=== PATIENT | male | born 1955 | race Caucasian/White ===

== ENCOUNTER 2024-12-18 09:57 | Outpatient (AMB) | payer MEDICARE, SELFPAY ==
--- NOTE | 2024-12-18 10:24 | MHC.PC.OV ---
Vital Signs 12/18/24 10:28 12/18/24 11:03 Height 5 ft 4.76 in Weight 131 lb 4 oz BMI 22.0 BP 210/126 H 200/100 H Blood Pressure Location Lt brachial Position Sitting Pulse 74 Pulse Source Pulse Oximeter Temp 97.1 F Temp Source Temporal Artery Scan Pulse Oximetry (%) 98 Oxygen Delivery Method Room Air Comment pt drink 4-6 cups/medium McCafe coffee per day Intake Visit Reasons: will need PE soon, establish Care Supervisor Adult Education Required: No Accompanied by: Self / Same As Patient Allergies No Known Allergies Allergy (Verified 12/18/24 10:44) Medication List - Last Reconciled 12/18/24 by Jamel Jovel PA-C No Known Home Meds Tobacco use date assessed: 12/18/24 Fall risk assessment: No Falls in past year Last assessed Fall Risk: 12/18/24 Dental Screening Dental Screen Date: 12/18/24 Did you have a dental visit in the last 12 months?: No Did you have a dental problem in the last 6 months where you did not have access to dental care?: Yes Was dental information given to patient?: Patient has dentist HPI will need PE soon, establish Care HPI Details Patient is a 69 year male here today for a new patient visit. Has not seen a PCP in over 15 years Patient's blood pressure very elevated today in office. He admits to drinking several (6-8) cups coffee per day. He otherwise denies any dizziness, headaches, vision issues. He does report chest discomfort from time to time that is short-lived. He reports he continues to work part-time. 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 Vaccines: Declines all vaccines Colorectal cancer screening: We did discuss possibly doing a Cologuard though would like to hold off on this for now. He will consider colonoscopy as well. [facility] Family History (Updated 12/18/24 @ 10:52 by Jamel Jovel PA-C) Mother HTN (hypertension) Social History Housing: Apartment Patient Tobacco Use Status: Never used Tobacco e-Cigarette/Vaping Use: Never Used service: No Current occupational status: employed Cognitive needs: No Hearing needs: No Vision needs: No Questionnaire PHQ-9 Over the last 2 weeks, how often have you been bothered by any of the following problems? 1. Little interest or pleasure in doing things: not at all 2. Feeling down, depressed, or hopeless: not at all 3. Trouble falling or staying asleep, or sleeping too much: not at all 4. Feeling tired or having little energy: not at all 5. Poor appetite or overeating: not at all 6. Feeling bad about yourself - or that you are a failure or have let yourself or your family down: not at all 7. Trouble concentrating on things, such as reading the newspaper or watching television: not at all 8. Moving or speaking so slowly that other people could have noticed. Or the opposite - being so fidgety or restless that you have been moving around a lot more than usual: not at all 9. Thoughts that you would be better off or of hurting yourself in some way: not at all Total score: 0 Depression Screening Interpretation: Negative Depression Screening Done: Yes 33316 - PHQ-9 Billing: Yes Source: Developed by Drs. Martín Molina, Destiny Flores, Gavin Lawrence and colleagues, with an educational tasneem from [employer]. Thrive Questionnaire Date Thrive assessed: 12/18/24 I am a: Patient What is your living situation today?: I have a steady place to live Within the past 12 months, did the food you bought not last and you didn't have the money to get more?: Never true Within the past 12 months, did you worry whether your food would run out before you got money to buy more?: Never true Do you have trouble paying for medicines?: No Do you have trouble getting transportation to medical appointments?: No Do you have trouble paying your heating and electricity bill?: No Do you have trouble taking care of your child, family member or friend?: No Do you have trouble with day-to-day activities such as bathing, preparing meals, shopping, managing finances, etc.?: No Are you currently unemployed and looking for a job?: No Are you interested in more education?: Yes Please select the resources that you would like help with: None Currently or been in a relationship where the following occur: I choose not to answer THRIVE Score: 0 AUDIT C Alcohol Use Questionnaire (AUDIT-C) 1. How often do you have a drink containing alcohol?: Never 3. How often do you have six or more drinks on one occasion?: Never Total Score: 0 RENITA-7 AMB Questionnaire RENITA-7 Date RENITA - 7 assessed: 12/18/24 Feeling nervous, anxious, or on edge: 0 = Not at all Not being able to stop or control worryin = Not at all Worrying too much about different things: 0 = Not at all Trouble relaxin = Not at all Being so restless that it is hard to sit still: 0 = Not at all Becoming easily annoyed or irritable: 0 = Not at all Feeling afraid as if something awful might happen: 0 = Not at all Total RENITA-7 score (0-4 normal; 5-9 mild; 10-14 moderate; 15-21 severe): 0 Source: Developed by Drs. Martín Molina, Destiny Flores, Gavin Lawrence and colleagues, with an educational tasneem from [employer]. RENITA-7 Assessment Billing RENITA-7 Assessment Tool: RENITA-7 Assessment 68753 Review of Systems Const Denies headache(s) Eyes Denies loss of vision ENT Denies vertigo, Denies dizziness, Denies headache(s) and Denies sore throat Card Reports chest pain, Denies leg edema and Denies lightheadedness Resp Denies cough, Denies hemoptysis and Denies wheezing GI Denies abdominal pain, Denies melena, Denies constipation, Denies diarrhea and Denies vomiting Denies dysuria, Denies urinary frequency and Denies urinary urgency Musc Denies arthralgias, Denies joint swelling, Denies numbness and Denies tingling Neuro Denies Abnormal speech present, Denies behavioral changes, Denies vertigo, Denies dizziness, Denies headache(s), Denies loss of vision, Denies memory loss, Denies numbness and Denies tingling Psych Denies anxiety, Denies behavioral changes, Denies depression, Denies memory loss and Denies panic attacks Silviano/Lymph Denies easy bleeding and Denies easy bruising Aller/Immun Denies wheezing Physical exam (Primary Care) Vital Signs: Last Vital Signs Temp 97.1 F 12/18/24 10:28 Pulse 74 12/18/24 10:28 BP 200/100 H 12/18/24 11:03 Pulse Ox 98 12/18/24 10:28 Oxygen Delivery Method Room Air 12/18/24 10:28 BMI result Body Mass Index 22.0 Tobacco/Smoking Status: Tobacco use Status Tobacco use date assessed 12/18/24 12/18/24 10:37 Patient Tobacco Use Status Never used Tobacco 12/18/24 10:37 e-Cigarette/Vaping Use Never Used 12/18/24 10:37 PHQ-9: PHQ-9 Score PHQ-9: Total score 0 12/18/24 10:48 Depression Screening Interpretation: Negative Thrive Assessment: Date of Thrive Assessment Date Thrive assessed 12/18/24 12/18/24 10:37 Currently or been in a relationship where the following occur: I choose not to answer Const General: healthy appearing, no acute distress, alert and awake Nutritional Appearance: well nourished Orientation/consciousness: oriented to person, oriented to place and oriented to time HENMT Ears: TM's normal bilaterally General nose exam: Normal nasal mucous membranes and turbinates present Eyes Conjunctivae: conjunctivae normal Sclerae: sclerae normal Pupils: Equal, round and reactive pupils present Neck Neck: Yes no lymphadenopathy and Yes no JVD Thyroid: Thyroid normal Carotids: no bruits Resp Effort & Inspection: normal respiratory effort and not tachypneic Auscultation: no crackles, no rales, no rhonchi and no wheezes Cardio Rate: regular rate Rhythm: regular rhythm Heart sounds: no murmurs and normal S1 and S2 GI Palpation (GI): Soft to palpation, nontender, no hepatomegaly and no splenomegaly Auscultation: normal bowel sounds Skin General skin exam: no rashes or lesions noted and dry skin Neuro General: oriented to person, oriented to place and oriented to time Cranial nerves: Yes Equal, round and reactive pupils present Speech: No Abnormal speech present Gait exam (Neuro): Normal gait present Motor exam (neuro): no tremor noted Extrem Right upper extremity: full ROM Left upper extremity: full ROM Right lower extremity: full ROM; no edema Left lower extremity: full ROM; no edema Psych Mental Status: mental status grossly normal Speech and movement: Normal speech and movement present Affect: normal affect Attitude: cooperative Thought process: Normal thought process present Office Procedures Flu Questionnaire Does the patient have a severe egg allergy?: No Immunizations Fluarix Triv [id number] (PF) 45 mcg (15 mcg x 3)/0.5 mL IM syringe Performing Provider: Jamel Jovel PA-C [facility] Documented (not given) by: HELIO Guevara on 12/18/24 10:37 Reason Not Given: Patient Refused Coding Level of Care Code New Pt Level 4 (47964) Diagnoses Primary hypertension I10 Hypertension type: primary hypertension Screening for diabetes mellitus (DM) Z13.1 Colon cancer screening Z12.11 Intermittent chest pain R07.9 Additional Codes RENITA-7 Assessment Billing - RENITA-7 Assessment Tool: RENITA-7 Assessment 87963 ([id number]) PHQ-9 - 29453 - PHQ-9 Billing: Yes ([id number]) Assessment & Plan Assessment & Plan (1) HTN (hypertension): Code(s): I10 - Essential (primary) hypertension Category: Medical Qualifiers: Hypertension type: primary hypertension Qualified Code(s): I10 - Essential (primary) hypertension Plan: Patient's blood pressure very elevated today in office. He is asymptomatic. We did discuss the need to start blood pressure medication though he declines. He would like to work dietary modifications and will follow up in 3 weeks to evaluate blood pressure. Explained that his blood pressure should preferably be below 140/90. He will decrease his coffee intake and sodium intake. Gave him reading material on low-sodium/ DASH diet We did discuss starting a blood pressure medication at time if blood pressure high. (2) Screening for diabetes mellitus (DM): Code(s): Z13.1 - Encounter for screening for diabetes mellitus Category: Medical Plan: As per HPI (3) Colon cancer screening: Code(s): Z12.11 - Encounter for screening for malignant neoplasm of colon Category: Medical Plan: Patient holding off on colorectal cancer screening at this point. (4) Intermittent chest pain: Code(s): R07.9 - Chest pain, unspecified Category: Medical Plan: We did discuss patient's intermittent chest pain today and had advised him on a cardiac stress test and an EKG though he declines at this time. We did discuss the possibility of his high blood pressure causing his chest discomfort and he is somewhat agrees. I INFORMED HIM WE SHOULD BE STRONGLY CONSIDERING STARTING A BLOOD PRESSURE MEDICATION THOUGH HE DECLINES AT THIS TIME.. Again He will work o dietary and lifestyle modifications and will see him back in a few weeks to evaluate blood pressure Orders: Orders Microalbumin, Random (w Creat) 12/18/24 I10 - Essential (primary) hypertension Comprehensive [place]. Panel Fast 12/18/24 I10 - Essential (primary) hypertension Prostate Specific Antigen Scr 12/18/24 I10 - Essential (primary) hypertension, Z12.5 - Encounter for screening for malignant neoplasm of prostate Influenza [id number] Immunization 12/18/24 Z23 - Encounter for immunization Complete Blood Count no Diff 12/18/24 I10 - Essential (primary) hypertension
[2024-12-18 10:28] VITALS: BP 210/126; PULSE 74; TEMP 36.2; O2SAT 98; BMI 22.0
--- OUTSIDE RECORDS SUMMARY | 2024-12-18 10:38 | XMS_ITS | Clinical Summary ---
Author Organization [employer] Address [address] [facility] [address] [place] [address] Care Team Providers Care Investment Banking Associate Name Role Phone Unavailable Primary Care Provider Unavailabl e Social History Tobacco Use Types Packs/Day Years Used Date Smoking Tobacco: Never Assessed Sex and Gender Information Value Date Recorded Sex Assigned at Male 07/23/2024 9:16 AM EDT Legal Sex Male 9:13 AM EDT Gender Identity Male 07/23/2024 9:16 AM EDT Sexual Orientation Choose not to disclose 2023 9:16 AM EDT Plan of Treatment Health Maintenance Due Date Last Done Comments CT Colonography 1956 Colonoscopy 1956 Colorectal Cancer Screening 1956 Dental Oral Exam 1956 Dental Prophylaxis 1956 Dental X-Ray: Bitewings 1956 Dental X-Ray: Full Mouth 1956 Depression Screening 1956 FIT DNA/Cologuard 1956 FIT 1956 FOBT 1956 Lipid Panel 1956 SDOH Screening 1956 Sigmoidoscopy 1956 Alcohol/Substance Use Screening 1968 Tobacco Screening 1968 Hepatitis C Screening 1974 DTaP/Tdap/Td Vaccines (1 - Tdap) 1975 Pneumococcal Vaccine: 50+ Ye ars (1 of 1 - PCV) 2006 Zoster Vaccines (1 of 2) 2006 COVID-19 Vaccine ( - 2023-2 5 season) 2024 Influenza Vaccine (#1) 2024 RSV Patients and Pa tients Aged 60 years or older (1 - 1-dose 75+ series) 2031 HIB Vaccines Aged Out No longer eligi ble based on patient's age to complete this topic HPV Vaccines Aged Out No longer eligi ble based on patient's age to complete this topic Hepatitis A Vaccines Aged Out No long er eligible based on patient's age to complete this topic Hepatitis B Vaccines Aged Out No long er eligible based on patient's age to complete this topic IPV Vaccines Aged Out No longer eligi ble based on patient's age to complete this topic Meningococcal Vaccine Aged Out No brianna stephanie eligible based on patient's age to complete this topic RSV under 20 months Aged Out No longe r eligible based on patient's age to complete this topic Rotavirus Vaccines Aged Out No longer eligible based on patient's age to complete this topic
--- OUTSIDE RECORDS SUMMARY | 2024-12-18 10:38 | XMS_ITS | Encounter Summary ---
Author Organization [employer] Address [address] [facility] [address] [place] [address] Care Team Providers Care Navigation Officer Name Role Phone Unavailable Primary Care Provider Unavailabl e Reason for Visit * Reason Onset Date Comments comp no insurance 07/23/2024 Encounter Details Date Type Department Care Team (Late st Contact Info) Description 07/23/2024 Telephone [facility] [address], [place] [phone] Jarvis Hart BDS [address] [place], [place] [phone] comp no insurance Social History Tobacco Use Types Packs/Day Years Used Date Smoking Tobacco: Never Assessed Sex and Gender Information Value Date Recorded Sex Assigned at Male 07/23/2024 9:16 AM EDT Legal Sex Male 9:13 AM EDT Gender Identity Male 07/23/2024 9:16 AM EDT Sexual Orientation Choose not to disclose 2023 9:16 AM EDT documented as of this encounter Miscellaneous Notes * Telephone Encounter - Viky Peña - 07/23/2024 9:20 AM EDT Patient is self pay. He is contacting his insurance to verify if he has dental coverage with his employer. Has been infomred that if he does not have coverage, he will be paying full fee of visit. Informed patient that he may go in to [facility] location at least 1 month prior to appt to apply for SFS andsee if he qualifies for reduced rate documented in this encounter Plan of Treatment Not on file documented as of this encounter Visit Diagnoses Not on filedocumented in this encounter
[2024-12-18 11:03] VITALS: BP 200/100
== END 2024-12-18 11:18 | disposition home or self-care (01) ==
PROVIDERS: Visit Provider Physician Assistant
DX: Z23 Encounter for immunization (principal)

== ENCOUNTER → 2024-12-18 09:57 | Outpatient (BNVA) | payer MEDICARE, SELFPAY | PROVIDERS: Visit Provider Physician Assistant | DX: I10 Essential (primary) hypertension (principal); R07.9 Chest pain, unspecified | CPT/HCPCS: 90471; 96127; 99202 ==

== ENCOUNTER 2024-12-26 08:44 | Outpatient (REF) | payer MEDICARE, SELFPAY ==
[2024-12-26 10:55] LABS: Hematocrit 44.1 % (42.0-52.0); Hemoglobin 14.6 g/dl (14.0-18.0); Mean Corpuscular HGB Conc 33.1 g/dl (31.0-36.0); Mean Corpuscular Hemoglobin 30.6 pg (27.0-33.0); Mean Corpuscular Volume 92.5 fL (80.0-98.0); Mean Platelet Volume 11.3 fL (9.4-12.4); Platelet Count 288 X10*3/uL (160-400); Red Blood Count 4.77 X10*6/uL (4.60-5.80); Red Cell Distribution Width 13.1 % (11.0-16.0); White Blood Count 10.2 X10*3/uL (4.8-10.8)
[2024-12-26 11:09] LABS: Alanine Aminotransferase 15 U/L (0-40); Albumin Level 4.6 g/dL (3.5-5.0); Alkaline Phosphatase 54 U/L (39-117); Anion Gap 12 (12-20); Aspartate Amino Transferase 22 U/L (5-37); Bilirubin Total 0.6 mg/dL (0.0-1.0); Blood Urea Nitrogen 15 mg/dL (9-16); Calcium 9.2 mg/dL (8.4-10.2); Carbon Dioxide 26 mmol/L (22-29); Chloride 107 mmol/L (96-108); Estimated Glomerular Filt Rate > 60; Glucose Fasting 90 mg/dL (60-99); Potassium 4.5 mmol/L (3.3-5.1); Sodium 140 mmol/L (135-145); Total Protein 7.6 g/dL (6.5-8.0)
[2024-12-26 11:39] LABS: Prostate Specific Antigen Scr 1.08 ng/mL (<0.05-4.0)
[2024-12-26 11:55] LABS: Creatinine Urine 144.67 mg/dL; Microalbum/Creatinine Ratio Ur 35.9 ug/mg cr (<30)
== END 2024-12-26 08:45 | disposition home or self-care (01) ==
LOC: HO.LAB 08:44
PROVIDERS: PCP Physician Assistant; Visit Provider Physician Assistant
DX: I10 Essential (primary) hypertension (principal); Z12.5 Encounter for screening for malignant neoplasm of prostate
CPT/HCPCS: 36415; 80053; 82043; 82570; 84153; 85027

== ENCOUNTER 2025-01-09 09:39 | Outpatient (AMB) | payer MEDICARE, SELFPAY ==
--- NOTE | 2025-01-09 10:05 | A.OFFPC_ITS ---
Vital Signs 01/09/25 10:06 Height 5 ft 4.67 in Weight 136 lb 2 oz BMI 22.9 BP 152/90 H Blood Pressure Location Lt brachial Position Sitting Pulse 70 Pulse Source Pulse Oximeter Temp 96.3 F L Temp Source Temporal Artery Scan Pulse Oximetry (%) 97 Oxygen Delivery Method Room Air Intake Visit Reasons: f/u blood pressure Intake Note: Patient is here to follow up on HTN. Threat Analyst Required: No Fruit Thinner Machine Operator: Not Required per policy Accompanied by: Self / Same As Patient Allergies No Known Allergies Allergy (Verified 01/09/25 10:15) Medication List - Last Reconciled 01/09/25 by Jamel Jovel PA-C lisinopril 5 mg PO DAILY Tobacco use date assessed: 01/09/25 Fall risk assessment: No Falls in past year Last assessed Fall Risk: 01/09/25 Dental Screening Dental Screen Date: 12/18/24 HPI f/u blood pressure HPI Details Patient is a 69 old male here today for a blood pressure follow-up. 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 He was started on lisinopril 5 mg. Today blood pressure much improved though still remains slightly elevated. Patient currently denies any chest pain, dizziness, vision issues. Seems that blood pressure is a bit better since last office visit on lisinopril 5 mg. Will increase to double the dose 10 mg for better blood pressure control. Will supply patient with a paper Rx for blood pressure cuff to monitor blood pressure at home Concern--> does report having a sensation of a foreign body in his right eye. 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 Will refer to Ophthalmology for the foreign body sensation. Will send for x-ray of his orbits to evaluate for any metal. [facility] Family History Mother HTN (hypertension) Social History Housing: Apartment Patient Tobacco Use Status: Never used Tobacco e-Cigarette/Vaping Use: Never Used Second Hand Smoke Exposure: No service: No Current occupational status: employed Cognitive needs: No Hearing needs: No Vision needs: No Questionnaire Thrive Questionnaire Date Thrive assessed: 12/18/24 I am a: Patient What is your living situation today?: I have a steady place to live Within the past 12 months, did the food you bought not last and you didn't have the money to get more?: Never true Within the past 12 months, did you worry whether your food would run out before you got money to buy more?: Never true Do you have trouble paying for medicines?: No Do you have trouble getting transportation to medical appointments?: No Do you have trouble paying your heating and electricity bill?: No Do you have trouble taking care of your child, family member or friend?: No Do you have trouble with day-to-day activities such as bathing, preparing meals, shopping, managing finances, etc.?: No Are you currently unemployed and looking for a job?: No Are you interested in more education?: Yes Please select the resources that you would like help with: None Currently or been in a relationship where the following occur: I choose not to answer THRIVE Score: 0 RENITA-7 AMB Questionnaire RENITA-7 Date RENITA - 7 assessed: 12/18/24 Source: Developed by Drs. Martín Molina, Destiny Flores, Gavin Lawrence and colleagues, with an educational tasneem from [employer]. Review of Systems Const Denies headache(s) Eyes Denies loss of vision ENT Denies vertigo, Denies dizziness, Denies headache(s) and Denies sore throat Card Denies chest pain, Denies leg edema and Denies lightheadedness Resp Denies cough, Denies hemoptysis and Denies wheezing GI Denies abdominal pain, Denies melena, Denies constipation, Denies diarrhea and Denies vomiting Denies dysuria, Denies urinary frequency and Denies urinary urgency Musc Denies arthralgias, Denies joint swelling, Denies numbness and Denies tingling Neuro Denies Abnormal speech present, Denies behavioral changes, Denies vertigo, Denies dizziness, Denies headache(s), Denies loss of vision, Denies memory loss, Denies numbness and Denies tingling Psych Denies anxiety, Denies behavioral changes, Denies depression, Denies memory loss and Denies panic attacks Silviano/Lymph Denies easy bleeding and Denies easy bruising Aller/Immun Denies wheezing Physical exam (Primary Care) Vital Signs: Last Vital Signs Temp 96.3 F L 01/09/25 10:06 Pulse 70 01/09/25 10:06 BP 152/90 H 01/09/25 10:06 Pulse Ox 97 01/09/25 10:06 Oxygen Delivery Method Room Air 01/09/25 10:06 BMI result Body Mass Index 22.9 Tobacco/Smoking Status: Tobacco use Status Tobacco use date assessed 01/09/25 01/09/25 10:13 Patient Tobacco Use Status Never used Tobacco 01/09/25 10:13 e-Cigarette/Vaping Use Never Used 01/09/25 10:13 Thrive Assessment: Date of Thrive Assessment Date Thrive assessed 12/18/24 01/09/25 10:13 Currently or been in a relationship where the following occur: I choose not to answer Const General: healthy appearing, no acute distress, alert and awake Nutritional Appearance: well nourished Orientation/consciousness: oriented to person, oriented to place and oriented to time HENMT Ears: TM's normal bilaterally General nose exam: Normal nasal mucous membranes and turbinates present Eyes Conjunctivae: conjunctivae normal Sclerae: sclerae normal Pupils: Equal, round and reactive pupils present Neck Neck: Yes no lymphadenopathy and Yes no JVD Thyroid: Thyroid normal Carotids: no bruits Resp Effort & Inspection: normal respiratory effort and not tachypneic Auscultation: no crackles, no rales, no rhonchi and no wheezes Cardio Rate: regular rate Rhythm: regular rhythm Heart sounds: no murmurs and normal S1 and S2 GI Palpation (GI): Soft to palpation, nontender, no hepatomegaly and no splenomegaly Auscultation: normal bowel sounds Skin General skin exam: no rashes or lesions noted and dry skin Neuro General: oriented to person, oriented to place and oriented to time Cranial nerves: Yes Equal, round and reactive pupils present Speech: No Abnormal speech present Gait exam (Neuro): Normal gait present Motor exam (neuro): no tremor noted Extrem Right upper extremity: full ROM Left upper extremity: full ROM Right lower extremity: full ROM; no edema Left lower extremity: full ROM; no edema Psych Mental Status: mental status grossly normal Speech and movement: Normal speech and movement present Affect: normal affect Attitude: cooperative Thought process: Normal thought process present Coding Level of Care Code Est Pt Level 4 (31963) Diagnoses Primary hypertension I10 Hypertension type: primary hypertension Onychomycosis of nail of digit of hand B35.1 Foreign body of right eye, initial encounter T15.91XA Encounter type: initial encounter Laterality: right Assessment & Plan Assessment & Plan (1) HTN (hypertension): Code(s): I10 - Essential (primary) hypertension Category: Medical Qualifiers: Hypertension type: primary hypertension Qualified Code(s): I10 - Essential (primary) hypertension Plan: Patient's blood pressure remains elevated today in office. Has been improved since starting lisinopril 5 mg. Will increase his lisinopril to 10 mg for better blood pressure control. Goal blood pressure to be below 140/90 (2) Onychomycosis of nail of digit of hand: Code(s): B35.1 - Tinea unguium Category: Medical Plan: Has chronic opaque greenish appearing thumbnail. Most recent liver enzymes normal. Will start oral antifungal (3) Eye foreign body: Code(s): T15.90XA - Foreign body on external eye, part unspecified, unspecified eye, initial encounter Category: Medical Qualifiers: Encounter type: initial encounter Laterality: right Qualified Code(s): T15.91XA - Foreign body on external eye, part unspecified, right eye, initial encounter Plan: As per HPI Orders: Orders Lipid Panel 01/09/25 I10 - Essential (primary) hypertension Microalbumin, Random (w Creat) 01/09/25 I10 - Essential (primary) hypertension Comprehensive [place]. Panel Fast 01/09/25 I10 - Essential (primary) hypertension XR orbit min 4V 01/09/25 T15.91XA - Foreign body on external eye, part unspecified, right eye, initial encounter Referrals Ophthalmology Referral T15.91XA - Foreign body on external eye, part unspecified, right eye, initial encounter Cologuard Test Z12.11 - Encounter for screening for malignant neoplasm of colon Medications: New lisinopril 10 mg PO DAILY 30 tabs 2RF 30 days I10 - Essential (primary) hypertension blood pressure monitor test blood pressure one per day 1 ea 0RF I10 - Essential (primary) hypertension terbinafine HCl 250 mg PO DAILY 84 tabs 0RF 12 weeks B35.1 - Tinea unguium
[2025-01-09 10:06] VITALS: BP 152/90; PULSE 70; TEMP 35.7; O2SAT 97; BMI 22.9
--- OUTSIDE RECORDS SUMMARY | 2025-01-09 11:06 | XMS_ITS | Clinical Summary ---
Author Organization [employer] Address [address] [facility] [address] [place] [address] Care Team Providers Care Traffic Manager Name Role Phone Unavailable Primary Care Provider [...]
--- OUTSIDE RECORDS SUMMARY | 2025-01-09 11:06 | XMS_ITS | Encounter Summary ---
Author Organization [employer] Address [address] [facility] 7t [place] [address] Care Team Providers Care Nutrition Internship Name Role Phone Unavailable Primary Care Provider Unavailabl e Reason for Visit * Reason Onset Date Comments comp no insurance 07/23/2024 Encounter Details Date Type Department Care Team (Late st Contact Info) Description 07/23/2024 Telephone [facility] DENTAL [address] [place], [place] [phone] Jarvis Hart BDS [address] [place], [place] [phone] comp no insurance Social History Tobacco Use [...] patient that he may go in to [facility] location at least 1 month prior to appt to apply for SFS andsee if he qualifies for reduced rate documented in this encounter Plan of Treatment Not on file documented as of this encounter Visit Diagnoses Not on filedocumented in this encounter
== END 2025-01-09 10:41 | disposition home or self-care (01) ==
PROVIDERS: Visit Provider Physician Assistant
DX: I10 Essential (primary) hypertension (principal); B35.1 Tinea unguium; T15.91XA Foreign body on external eye, part unspecified, right eye, initial encounter

== ENCOUNTER → 2025-01-09 09:39 | Outpatient (BNVA) | payer MEDICARE, SELFPAY | PROVIDERS: Visit Provider Physician Assistant | DX: I10 Essential (primary) hypertension (principal); B35.1 Tinea unguium; T15.91XD Foreign body on external eye, part unspecified, right eye, subsequent encounter | CPT/HCPCS: 99212 ==

== ENCOUNTER 2025-01-25 07:32 | Outpatient (REF) | payer MEDICARE, SELFPAY ==
--- OUTSIDE RECORDS SUMMARY | 2025-01-25 07:36 | XMS_ITS | Clinical Summary ---
Author Organization [employer] Address [address] [facility] 7[address] [place] [address] Care Team Providers Care Compressor Operator Name Role Phone Unavailable Primary Care Provider [...]
--- OUTSIDE RECORDS SUMMARY | 2025-01-25 07:36 | XMS_ITS | Encounter Summary ---
Author Organization [employer] Address [address] [facility] [address] [place] [address] Care Team Providers Care Ice Bag Assembler Name Role Phone Unavailable Primary Care Provider Unavailabl e Reason for Visit * Reason Onset Date Comments comp no insurance 07/23/2024 Encounter Details Date Type Department Care Team (Late st Contact Info) Description 07/23/2024 Telephone [facility] D[facility]AL [address] [place], [place] [phone] Jarvis Hart BDS [address] [place], [place] [phone] comp no insurance Social History Tobacco Use [...] patient that he may go in to [facility] location at least 1 month prior to appt to apply for SFS andsee if he qualifies for reduced rate documented in this encounter Plan of Treatment Not on file documented as of this encounter Visit Diagnoses Not on filedocumented in this encounter
[2025-01-25 08:55] LABS: Alanine Aminotransferase 18 U/L (0-40); Albumin Level 4.3 g/dL (3.5-5.0); Alkaline Phosphatase 52 U/L (39-117); Anion Gap 11 (12-20); Aspartate Amino Transferase 18 U/L (5-37); Bilirubin Total 0.4 mg/dL (0.0-1.0); Blood Urea Nitrogen 19 mg/dL (9-16); Calcium 9.2 mg/dL (8.4-10.2); Carbon Dioxide 26 mmol/L (22-29); Chloride 109 mmol/L (96-108); Cholesterol 219 mg/dL (<200); Estimated Glomerular Filt Rate > 60; Glucose Fasting 106 mg/dL (60-99); HDL Cholesterol 50 mg/dL (>40); LDL Cholesterol Calculated 145 mg/dL (<100); Potassium 4.5 mmol/L (3.3-5.1); Sodium 141 mmol/L (135-145); Total Protein 7.3 g/dL (6.5-8.0); Triglycerides 123 mg/dL (<150)
[2025-01-25 09:34] LABS: Creatinine Urine 199.31 mg/dL; Microalbum/Creatinine Ratio Ur 21.5 ug/mg cr (<30)
== END 2025-01-25 07:33 | disposition home or self-care (01) ==
LOC: HO.LAB 07:32
PROVIDERS: PCP Physician Assistant; Visit Provider Physician Assistant
DX: I10 Essential (primary) hypertension (principal)
CPT/HCPCS: 36415; 80053; 80061; 82043; 82570

== ENCOUNTER 2025-02-06 09:14 | Outpatient (AMB) | payer MEDICARE, SELFPAY ==
--- NOTE | 2025-02-06 09:16 | MHC.PC.OV ---
Vital Signs 02/06/25 09:23 Height 5 ft 4.67 in Weight 133 lb 8 oz BMI 22.4 BP 160/102 H Blood Pressure Location Lt brachial Position Sitting Pulse 68 Pulse Source Pulse Oximeter Temp 97.1 F Temp Source Temporal Artery Scan Pulse Oximetry (%) 99 Oxygen Delivery Method Room Air Intake Visit Reasons: f/u HTN / Dental clearance Reed Fixer Required: No Accompanied by: Self / Same As Patient Allergies No Known Allergies Allergy (Verified 02/06/25 09:32) Medication List - Last Reconciled 02/06/25 by Jamel Jovel PA-C blood pressure monitor test blood pressure one per day lisinopril 10 mg PO DAILY 30 days terbinafine HCl 250 mg PO DAILY 12 weeks Tobacco use date assessed: 01/09/25 Dental Screening Dental Screen Date: 12/18/24 HPI f/u HTN / Dental clearance HPI Details Patient is a 61-year-old male here today for follow-up visit. .. Hypertension: Patient's blood pressure remains elevated today in office. Will increase his lisinopril to 20 mg for better blood pressure control. Fortunately patient is asymptomatic without any dizziness, headaches, chest discomforts. Poor dentition: reports severe dental caries requiring significant dental work with an associated high financial burden, searching for options to mitigate this through a dental school at [facility]. Current PSAs indicate satisfactory results, while prostate health remains a point of interest for the patient. He is currently on terbinapine for onychomycosis, with emphasis on monitoring liver function due to potential medication-induced hepatotoxicity. PFSH Family History Mother HTN (hypertension) Social History Housing: Apartment Patient Tobacco Use Status: Never used Tobacco e-Cigarette/Vaping Use: Never Used Second Hand Smoke Exposure: No service: No Current occupational status: employed Cognitive needs: No Hearing needs: No Vision needs: No Questionnaire Thrive Questionnaire Date Thrive assessed: 12/18/24 I am a: Patient What is your living situation today?: I have a steady place to live Within the past 12 months, did the food you bought not last and you didn't have the money to get more?: Never true Within the past 12 months, did you worry whether your food would run out before you got money to buy more?: Never true Do you have trouble paying for medicines?: No Do you have trouble getting transportation to medical appointments?: No Do you have trouble paying your heating and electricity bill?: No Do you have trouble taking care of your child, family member or friend?: No Do you have trouble with day-to-day activities such as bathing, preparing meals, shopping, managing finances, etc.?: No Are you currently unemployed and looking for a job?: No Are you interested in more education?: Yes Please select the resources that you would like help with: None Currently or been in a relationship where the following occur: I choose not to answer THRIVE Score: 0 RENITA-7 AMB Questionnaire RENITA-7 Date RENITA - 7 assessed: 12/18/24 Source: Developed by Drs. Martín Molina, Destiny Flores, Gavin Lawrence and colleagues, with an educational tasneem from [employer]. Review of Systems Const Denies headache(s) Eyes Denies loss of vision ENT Denies vertigo, Denies dizziness, Denies headache(s) and Denies sore throat Card Denies chest pain, Denies leg edema and Denies lightheadedness Resp Denies cough, Denies hemoptysis and Denies wheezing GI Denies abdominal pain, Denies melena, Denies constipation, Denies diarrhea and Denies vomiting Denies dysuria, Denies urinary frequency and Denies urinary urgency Musc Denies arthralgias, Denies joint swelling, Denies numbness and Denies tingling Neuro Denies Abnormal speech present, Denies behavioral changes, Denies vertigo, Denies dizziness, Denies headache(s), Denies loss of vision, Denies memory loss, Denies numbness and Denies tingling Psych Denies anxiety, Denies behavioral changes, Denies depression, Denies memory loss and Denies panic attacks Silviano/Lymph Denies easy bleeding and Denies easy bruising Aller/Immun Denies wheezing Physical exam (Primary Care) Vital Signs: Last Vital Signs Temp 97.1 F 02/06/25 09:23 Pulse 68 02/06/25 09:23 BP 160/102 H 02/06/25 09:23 Pulse Ox 99 02/06/25 09:23 Oxygen Delivery Method Room Air 02/06/25 09:23 BMI result Body Mass Index 22.4 Tobacco/Smoking Status: Tobacco use Status Tobacco use date assessed 01/09/25 02/06/25 09:16 Patient Tobacco Use Status Never used Tobacco 02/06/25 09:16 e-Cigarette/Vaping Use Never Used 02/06/25 09:16 Thrive Assessment: Date of Thrive Assessment Date Thrive assessed 12/18/24 02/06/25 09:16 Currently or been in a relationship where the following occur: I choose not to answer Const General: healthy appearing, no acute distress, alert and awake Nutritional Appearance: well nourished Orientation/consciousness: oriented to person, oriented to place and oriented to time HENMT Ears: TM's normal bilaterally General nose exam: Normal nasal mucous membranes and turbinates present Eyes Conjunctivae: conjunctivae normal Sclerae: sclerae normal Pupils: Equal, round and reactive pupils present Neck Neck: Yes no lymphadenopathy and Yes no JVD Thyroid: Thyroid normal Carotids: no bruits Resp Effort & Inspection: normal respiratory effort and not tachypneic Auscultation: no crackles, no rales, no rhonchi and no wheezes Cardio Rate: regular rate Rhythm: regular rhythm Heart sounds: no murmurs and normal S1 and S2 GI Palpation (GI): Soft to palpation, nontender, no hepatomegaly and no splenomegaly Auscultation: normal bowel sounds Skin General skin exam: no rashes or lesions noted and dry skin Neuro General: oriented to person, oriented to place and oriented to time Cranial nerves: Yes Equal, round and reactive pupils present Speech: No Abnormal speech present Gait exam (Neuro): Normal gait present Motor exam (neuro): no tremor noted Extrem Right upper extremity: full ROM Left upper extremity: full ROM Right lower extremity: full ROM; no edema Left lower extremity: full ROM; no edema Psych Mental Status: mental status grossly normal Speech and movement: Normal speech and movement present Affect: normal affect Attitude: cooperative Thought process: Normal thought process present Coding Level of Care Code Est Pt Level 4 (28886) Diagnoses Primary hypertension I10 Hypertension type: primary hypertension Poor dentition K08.9 Assessment & Plan Assessment & Plan (1) HTN (hypertension): Code(s): I10 - Essential (primary) hypertension Category: Medical Qualifiers: Hypertension type: primary hypertension Qualified Code(s): I10 - Essential (primary) hypertension Plan: Patient's blood pressure remains elevated today in office. Has been on lisinopril 10 mg though blood pressure remains high. Will increase his lisinopril 20 mg for better blood pressure control. He has been trying to reduce his caffeine intake down to 2 cups of coffee per day. Goal blood pressures to be below 140/90 (2) Poor dentition: Code(s): K08.9 - Disorder of teeth and supporting structures, unspecified Category: Medical Plan: Patient is due for major dental work and needs clearance. Awaiting paperwork for clearance. I advised that we need to get better control of his blood pressure before being cleared for dental surgery. Orders: Orders Liver Panel Today B35.1 - Tinea unguium Medications: New lisinopril 20 mg PO DAILY 30 days 30 tabs 1RF I10 - Essential (primary) hypertension On Hold lisinopril Hold Comment: Doctor's Order 10 mg PO DAILY 30 days 30 tabs 2RF I10 - Essential (primary) hypertension
[2025-02-06 09:23] VITALS: BP 160/102; PULSE 68; TEMP 36.2; O2SAT 99; BMI 22.4
--- OUTSIDE RECORDS SUMMARY | 2025-02-06 10:07 | XMS_ITS | Clinical Summary ---
Author Organization [employer] Address [address] [facility] 7t [place] [address] Care Team Providers Care Movie Star Name Role Phone Unavailable Primary Care Provider [...]
--- OUTSIDE RECORDS SUMMARY | 2025-02-06 10:08 | XMS_ITS | Encounter Summary ---
Author Organization [employer] Address [address] [facility] [address] [place] [address] Care Team Providers Care Burr Mill Operator Name Role Phone Unavailable Primary Care Provider Unavailabl e Reason for Visit * Reason Onset Date Comments comp no insurance 07/23/2024 Encounter Details Date Type Department Care Team (Late st Contact Info) Description 07/23/2024 Telephone [facility] DENTAL [address] [place], [place] [phone] Jarvis Hart BDS [address] [place], [place] [phone] comp no insurance Social History Tobacco Use [...] patient that he may go in to [facility] location at least 1 month prior to appt to apply for SFS andsee if he qualifies for reduced rate documented in this encounter Plan of Treatment Not on file documented as of this encounter Visit Diagnoses Not on filedocumented in this encounter
== END 2025-02-06 09:57 | disposition home or self-care (01) ==
LOC: HO.HMCH 09:15
PROVIDERS: PCP Physician Assistant; Visit Provider Physician Assistant
DX: I10 Essential (primary) hypertension (principal); K08.9 Disorder of teeth and supporting structures, unspecified

== ENCOUNTER → 2025-02-06 09:14 | Outpatient (BNVA) | payer MEDICARE, SELFPAY | PROVIDERS: PCP Physician Assistant; Visit Provider Physician Assistant | DX: I10 Essential (primary) hypertension (principal); K08.9 Disorder of teeth and supporting structures, unspecified | CPT/HCPCS: 99212 ==

== ENCOUNTER 2025-03-06 08:51 | Outpatient (AMB) | payer OTHER, SELFPAY ==
--- NOTE | 2025-03-06 09:23 | A.OFFPC_ITS ---
Vital Signs 03/06/25 09:33 Height 5 ft 4.7 in Weight 130 lb BMI 21.8 BP 170/100 H Blood Pressure Location Lt brachial Position Sitting Pulse 70 Pulse Source Pulse Oximeter Temp 97.1 F Temp Source Temporal Artery Scan Pulse Oximetry (%) 96 Oxygen Delivery Method Room Air Intake Visit Reasons: f/u HTN [employer] Required: No Accompanied by: Self / Same As Patient Allergies No Known Allergies Allergy (Verified 03/06/25 09:40) Medication List - Last Reconciled 03/06/25 by Jamel Jovel PA-C blood pressure monitor test blood pressure one per day lisinopril 20 mg PO DAILY 30 days terbinafine HCl 250 mg PO DAILY 12 weeks Tobacco use date assessed: 01/09/25 Dental Screening Dental Screen Date: 12/18/24 HPI f/u HTN HPI Details Patient is a 69-year-old male here today for follow-up visit. .. Hypertension: Patient's blood pressure remains elevated today in office. We increased his lisinopril to 20 mg at last visit though blood pressure remains elevated. He does report drinking 2-3 cups of coffee per day and is willing to cut down and drink orange juice... PLAN: Will add on hydrochlorothiazide for better blood pressure control . PFSH Family History Mother HTN (hypertension) Social History Housing: Apartment Patient Tobacco Use Status: Never used Tobacco e-Cigarette/Vaping Use: Never Used Second Hand Smoke Exposure: No service: No Current occupational status: employed Cognitive needs: No Hearing needs: No Vision needs: No Questionnaire Thrive Questionnaire Date Thrive assessed: 12/18/24 I am a: Patient What is your living situation today?: I have a steady place to live Within the past 12 months, did the food you bought not last and you didn't have the money to get more?: Never true Within the past 12 months, did you worry whether your food would run out before you got money to buy more?: Never true Do you have trouble paying for medicines?: No Do you have trouble getting transportation to medical appointments?: No Do you have trouble paying your heating and electricity bill?: No Do you have trouble taking care of your child, family member or friend?: No Do you have trouble with day-to-day activities such as bathing, preparing meals, shopping, managing finances, etc.?: No Are you currently unemployed and looking for a job?: No Are you interested in more education?: Yes Please select the resources that you would like help with: None Currently or been in a relationship where the following occur: I choose not to answer THRIVE Score: 0 RENITA-7 AMB Questionnaire RENITA-7 Date RENITA - 7 assessed: 12/18/24 Source: Developed by Drs. Martín Molina, Destiny Flores, Gavin Lawrence and colleagues, with an educational tasneem from [employer]. Review of Systems Const Denies headache(s) Eyes Denies loss of vision ENT Denies vertigo, Denies dizziness, Denies headache(s) and Denies sore throat Card Denies chest pain, Denies leg edema and Denies lightheadedness Resp Denies cough, Denies hemoptysis and Denies wheezing GI Denies abdominal pain, Denies melena, Denies constipation, Denies diarrhea and Denies vomiting Denies dysuria, Denies urinary frequency and Denies urinary urgency Musc Denies arthralgias, Denies joint swelling, Denies numbness and Denies tingling Neuro Denies Abnormal speech present, Denies behavioral changes, Denies vertigo, Denies dizziness, Denies headache(s), Denies loss of vision, Denies memory loss, Denies numbness and Denies tingling Psych Denies anxiety, Denies behavioral changes, Denies depression, Denies memory loss and Denies panic attacks Silviano/Lymph Denies easy bleeding and Denies easy bruising Aller/Immun Denies wheezing Physical exam (Primary Care) Vital Signs: Last Vital Signs Temp 97.1 F 03/06/25 09:33 Pulse 70 03/06/25 09:33 BP 170/100 H 03/06/25 09:33 Pulse Ox 96 03/06/25 09:33 Oxygen Delivery Method Room Air 03/06/25 09:33 BMI result Body Mass Index 21.8 Tobacco/Smoking Status: Tobacco use Status Tobacco use date assessed 01/09/25 03/06/25 09:23 Patient Tobacco Use Status Never used Tobacco 03/06/25 09:23 e-Cigarette/Vaping Use Never Used 03/06/25 09:23 Thrive Assessment: Date of Thrive Assessment Date Thrive assessed 12/18/24 03/06/25 09:23 Currently or been in a relationship where the following occur: I choose not to answer Const General: healthy appearing, no acute distress, alert and awake Nutritional Appearance: well nourished Orientation/consciousness: oriented to person, oriented to place and oriented to time HENMT Ears: TM's normal bilaterally General nose exam: Normal nasal mucous membranes and turbinates present Eyes Conjunctivae: conjunctivae normal Sclerae: sclerae normal Pupils: Equal, round and reactive pupils present Neck Neck: Yes no lymphadenopathy and Yes no JVD Thyroid: Thyroid normal Carotids: no bruits Resp Effort & Inspection: normal respiratory effort and not tachypneic Auscultation: no crackles, no rales, no rhonchi and no wheezes Cardio Rate: regular rate Rhythm: regular rhythm Heart sounds: no murmurs and normal S1 and S2 GI Palpation (GI): Soft to palpation, nontender, no hepatomegaly and no sple nomegaly Auscultation: normal bowel sounds Skin General skin exam: no rashes or lesions noted and dry skin Neuro General: oriented to person, oriented to place and oriented to time Cranial nerves: Yes Equal, round and reactive pupils present Speech: No Abnormal speech present Gait exam (Neuro): Normal gait present Motor exam (neuro): no tremor noted Extrem Right upper extremity: full ROM Left upper extremity: full ROM Right lower extremity: full ROM; no edema Left lower extremity: full ROM; no edema Psych Mental Status: mental status grossly normal Speech and movement: Normal speech and movement present Affect: normal affect Attitude: cooperative Thought process: Normal thought process present Coding Level of Care Code Est Pt Level 3 (44767) Diagnoses Primary hypertension I10 Hypertension type: primary hypertension Assessment & Plan Assessment & Plan (1) HTN (hypertension): Code(s): I10 - Essential (primary) hypertension Category: Medical Qualifiers: Hypertension type: primary hypertension Qualified Code(s): I10 - Essential (primary) hypertension Plan: Patient's blood pressure remains elevated today in office. You in the increase his lisinopril 20 mg his blood pressure remains elevated. Fortunately he is asymptomatic without any chest discomforts, vision issues or headaches.. Will add on hydrochlorothiazide for better blood pressure control. Advised on reducing his caffeine intake in hopes this will help his blood pressure as well. Will consider cardiac and renal evaluation if blood pressure remain elevated over the next month. Goal blood pressures to be below 140/90 Medications: New lisinopril-hydrochlorothiazide 20-12.5 mg 1 tab PO DAILY 30 tabs 1RF 30 days I10 - Essential (primary) hypertension Refilled blood pressure monitor test blood pressure one per day 1 ea 0RF I10 - Essential (primary) hypertension Discontinued lisinopril Discontinued Reason: Doctor's Order 20 mg PO DAILY 30 days 30 tabs 1RF I10 - Essential (primary) hypertension
--- OUTSIDE RECORDS SUMMARY | 2025-03-06 09:26 | XMS_ITS | Encounter Summary ---
Author Organization [employer] Address [address] [facility] 7t [place] [address] Care Team Providers Care Application Performance Engineer Name Role Phone Unavailable Primary Care Provider Unavailabl e Reason for Visit * Reason Onset Date Comments comp no insurance 07/23/2024 Encounter Details Date Type Department Care Team (Late st Contact Info) Description 07/23/2024 Telephone [facility] DENTAL [address] [place], [place] [phone] Jarvis Hart BDS [address] [place], [place] [phone] comp no insurance Social History Tobacco Use [...] patient that he may go in to [facility] location at least 1 month prior to appt to apply for SFS andsee if he qualifies for reduced rate documented in this encounter Plan of Treatment Not on file documented as of this encounter Visit Diagnoses Not on filedocumented in this encounter
--- OUTSIDE RECORDS SUMMARY | 2025-03-06 09:26 | XMS_ITS | Clinical Summary ---
Author Organization [employer] Address [address] [facility] [address]t [place] [address] Care Team Providers Care Hat Lacer Name Role Phone Unavailable Primary Care Provider [...]
[2025-03-06 09:33] VITALS: BP 170/100; PULSE 70; TEMP 36.2; O2SAT 96; BMI 21.8
== END 2025-03-06 10:00 | disposition home or self-care (01) ==
LOC: HO.HMCH 08:52
PROVIDERS: PCP Physician Assistant; Visit Provider Physician Assistant
DX: I10 Essential (primary) hypertension (principal)

== ENCOUNTER → 2025-03-06 08:51 | Outpatient (BNVA) | payer OTHER, SELFPAY | PROVIDERS: PCP Physician Assistant; Visit Provider Physician Assistant | DX: Z13.89 Encounter for screening for other disorder (principal) ==

== ENCOUNTER 2025-04-10 09:01 | Outpatient (AMB) | payer OTHER, SELFPAY ==
--- OUTSIDE RECORDS SUMMARY | 2025-04-10 09:31 | XMS_ITS | Clinical Summary ---
Author Organization [employer] Address [address] [facility] [address] [place] [address] Care Team Providers Care Cottrell Blower Name Role Phone Unavailable Primary Care Provider [...] patient's age to complete this topic Meningococcal B Vaccine Aged Out No l onger eligible based on patient's age to complete [...]
[2025-04-10 09:40] VITALS: BP 142/94; PULSE 70; TEMP 36.3; O2SAT 97; BMI 22.3
--- NOTE | 2025-04-10 09:40 | A.OFFPC_ITS ---
Vital Signs 04/10/25 09:40 04/10/25 09:55 Height 5 ft 4.7 in Weight 133 lb BMI 22.3 BP 142/94 H 140/90 H Blood Pressure Location Lt brachial Position Sitting Pulse 70 Pulse Source Pulse Oximeter Temp 97.3 F Temp Source Temporal Artery Scan Pulse Oximetry (%) 97 Oxygen Delivery Method Room Air Intake Visit Reasons: 4 week f/u Machine Coremaker Required: No Accompanied by: Self / Same As Patient Allergies No Known Allergies Allergy (Verified 04/10/25 09:48) Medication List - Last Reconciled 04/10/25 by Jamel Jovel PA-C blood pressure monitor test blood pressure one per day lisinopril-hydrochlorothiazide 20-12.5 mg 1 tab PO DAILY 30 days terbinafine HCl 250 mg PO DAILY 12 weeks Tobacco use date assessed: 01/09/25 Fall risk assessment: No Falls in past year Last assessed Fall Risk: 04/10/25 Dental Screening Dental Screen Date: 12/18/24 HPI 4 week f/u HPI Details Patient is a 69-year-old male here today for follow-up visit. .. Hypertension: Patient's blood pressure remains elevated today in office. We have transitioned him to lisinopril/hydrochlorothiazide dual blood pressure agent which has significantly reduced his blood pressure. He has reduced his caffeine intake as well. He will ultimately feels well without any chest discomfort, dizziness or headaches. For now will continue on his current dose of lisinopril hydrochlorothiazide and advised him to start monitoring his blood pressures at home with goal blood pressure to be below 140/90. Will consider increasing lisinopril dose if blood pressures remain around 140/90 PFSH Family History Mother HTN (hypertension) Social History Housing: Apartment Patient Tobacco Use Status: Never used Tobacco e-Cigarette/Vaping Use: Never Used Second Hand Smoke Exposure: No service: No Current occupational status: employed Cognitive needs: No Hearing needs: No Vision needs: No Questionnaire Thrive Questionnaire Date Thrive assessed: 12/18/24 I am a: Patient What is your living situation today?: I have a steady place to live Within the past 12 months, did the food you bought not last and you didn't have the money to get more?: Never true Within the past 12 months, did you worry whether your food would run out before you got money to buy more?: Never true Do you have trouble paying for medicines?: No Do you have trouble getting transportation to medical appointments?: No Do you have trouble paying your heating and electricity bill?: No Do you have trouble taking care of your child, family member or friend?: No Do you have trouble with day-to-day activities such as bathing, preparing meals, shopping, managing finances, etc.?: No Are you currently unemployed and looking for a job?: No Are you interested in more education?: Yes Please select the resources that you would like help with: None Currently or been in a relationship where the following occur: I choose not to answer THRIVE Score: 0 RENITA-7 AMB Questionnaire RENITA-7 Date RENITA - 7 assessed: 12/18/24 Source: Developed by Drs. Martín Molina, Destiny Flores, Gavin Lawrence and colleagues, with an educational tasneem from [employer]. Review of Systems Const Denies headache(s) Eyes Denies loss of vision ENT Denies vertigo, Denies dizziness, Denies headache(s) and Denies sore throat Card Denies chest pain, Denies leg edema and Denies lightheadedness Resp Denies cough, Denies hemoptysis and Denies wheezing GI Denies abdominal pain, Denies melena, Denies constipation, Denies diarrhea and Denies vomiting Denies dysuria, Denies urinary frequency and Denies urinary urgency Musc Denies arthralgias, Denies joint swelling, Denies numbness and Denies tingling Neuro Denies Abnormal speech present, Denies behavioral changes, Denies vertigo, Denies dizziness, Denies headache(s), Denies loss of vision, Denies memory loss, Denies numbness and Denies tingling Psych Denies anxiety, Denies behavioral changes, Denies depression, Denies memory loss and Denies panic attacks Silviano/Lymph Denies easy bleeding and Denies easy bruising Aller/Immun Denies wheezing Physical exam (Primary Care) Vital Signs: Last Vital Signs Temp 97.3 F 04/10/25 09:40 Pulse 70 04/10/25 09:40 BP 142/94 H 04/10/25 09:40 Pulse Ox 97 04/10/25 09:40 Oxygen Delivery Method Room Air 04/10/25 09:40 BMI result Body Mass Index 22.3 Tobacco/Smoking Status: Tobacco use Status Tobacco use date assessed 01/09/25 04/10/25 09:46 Patient Tobacco Use Status Never used Tobacco 04/10/25 09:46 e-Cigarette/Vaping Use Never Used 04/10/25 09:46 Thrive Assessment: Date of Thrive Assessment Date Thrive assessed 12/18/24 04/10/25 09:46 Currently or been in a relationship where the following occur: I choose not to answer Const General: healthy appearing, no acute distress, alert and awake Nutritional Appearance: well nourished Orientation/consciousness: oriented to person, oriented to place and oriented to time HENMT Ears: TM's normal bilaterally General nose exam: Normal nasal mucous membranes and turbinates present Eyes Conjunctivae: conjunctivae normal Sclerae: sclerae normal Pupils: Equal, round and reactive pupils present Neck Neck: Yes no lymphadenopathy and Yes no JVD Thyroid: Thyroid normal Carotids: no bruits Resp Effort & Inspection: normal respiratory effort and not tachypneic Auscultation: no crackles, no rales, no rhonchi and no wheezes Cardio Rate: regular rate Rhythm: regular rhythm Heart sounds: no murmurs and normal S1 and S2 GI Palpation (GI): Soft to palpation, nontender, no hepatomegaly and no splenomegaly Auscultation: normal bowel sounds Skin General skin exam: no rashes or lesions noted and dry skin Neuro General: oriented to person, oriented to place and oriented to time Cranial nerves: Yes Equal, round and reactive pupils present Speech: No Abnormal speech present Gait exam (Neuro): Normal gait present Motor exam (neuro): no tremor noted Extrem Right upper extremity: full ROM Left upper extremity: full ROM Right lower extremity: full ROM; no edema Left lower extremity: full ROM; no edema Psych Mental Status: mental status grossly normal Speech and movement: Normal speech and movement present Affect: normal affect Attitude: cooperative Thought process: Normal thought process present Coding Level of Care Code Est Pt Level 3 (50710) Diagnoses Primary hypertension I10 Hypertension type: primary hypertension Assessment & Plan Assessment & Plan (1) HTN (hypertension): Code(s): I10 - Essential (primary) hypertension Category: Medical Qualifiers: Hypertension type: primary hypertension Qualified Code(s): I10 - Essential (primary) hypertension Plan: Patient's blood pressure remains slightly elevated today in office though much improved from previous visits. He is now on lisinopril hydrochlorothiazide combo agent which has been controlling his blood pressure much better. He has not been getting home readings of his blood pressure and advised to do so. For now will continue his current dose of antihypertensive medication with goal blood pressure to be below 140/90. Medications: Changed From lisinopril-hydrochlorothiazide 20-12.5 mg 1 tab PO DAILY 30 days 30 tabs 1RF I10 - Essential (primary) hypertension To lisinopril-hydrochlorothiazide 20-12.5 mg 1 tab PO DAILY 90 days 90 tabs 1RF I10 - Essential (primary) hypertension Refilled blood pressure monitor test blood pressure one per day 1 ea 0RF I10 - Essential (primary) hypertension
[2025-04-10 09:55] VITALS: BP 140/90
== END 2025-04-10 10:06 | disposition home or self-care (01) ==
LOC: HO.HMCH 09:02
PROVIDERS: PCP Physician Assistant; Visit Provider Physician Assistant
DX: I10 Essential (primary) hypertension (principal)

== ENCOUNTER → 2025-04-10 09:01 | Outpatient (BNVA) | payer OTHER, SELFPAY | PROVIDERS: PCP Physician Assistant; Visit Provider Physician Assistant | DX: Z13.89 Encounter for screening for other disorder (principal) ==

== ENCOUNTER 2025-08-20 08:22 | Outpatient (AMB) | payer OTHER, SELFPAY ==
--- OUTSIDE RECORDS SUMMARY | 2025-08-20 08:47 | XMS_ITS | Encounter Summary ---
Author Organization [employer] Address [address] [facility] [address] [place] [address] Care Team Providers Care Family Assistant Name Role Phone Unavailable Primary Care Provider Unavailabl e Reason for Visit * Reason Onset Date Comments comp no insurance 07/23/2024 Encounter Details Date Type Department Care Team (Late st Contact Info) Description 07/23/2024 Telephone [facility] [address] [place], [place] [phone] Jarvis Hart BDS [address] [place], [place] [phone] comp no insurance Social History Tobacco Use [...] patient that he may go in to [facility] location at least 1 month prior to appt to apply for SFS andsee if he qualifies for reduced rate documented in this encounter Plan of Treatment Not on file documented as of this encounter Visit Diagnoses Not on filedocumented in this encounter
--- OUTSIDE RECORDS SUMMARY | 2025-08-20 08:47 | XMS_ITS | Clinical Summary ---
Author Organization [employer] Address [address] [facility] [address] [place] [address] Care Team Providers Care Bulbs Farmworker Name Role Phone Unavailable Primary Care Provider [...] FIT 1956 FOBT 1956 Lipid Panel 1956 Sigmoidoscopy 1956 Alcohol/Substance Use Screening 1968 Tobacco Screening 1968 DTaP/Tdap/Td Vaccines (1 - Tdap) 1975 Pneumococcal Vaccine: 50+ Ye ars (1 of 1 - PCV) 2006 Zoster Vaccines (1 of 2) 2006 COVID-19 Vaccine ( - 2023-2 5 season) 2025 Influenza Vaccine (#1) 2025 RSV Patients and Pa tients Aged 60 [...]
--- NOTE | 2025-08-20 08:49 | MHC.PC.OV ---
Vital Signs 08/20/25 08:51 Height 5 ft 4.7 in Weight 129 lb 8 oz BMI 21.7 BP 120/74 Blood Pressure Location Lt brachial Position Sitting Pulse 66 Pulse Source Pulse Oximeter Temp 97.3 F Temp Source Temporal Artery Scan Pulse Oximetry (%) 98 Oxygen Delivery Method Room Air Intake Visit Reasons: annual exam Intake Note: Patient is here today for a physical. Trace Evidence Technician Required: No It Technical Support Specialist: Not Required per policy Accompanied by: Self / Same As Patient Allergies No Known Allergies Allergy (Verified 08/20/25 09:01) Medication List - Last Reconciled 08/20/25 by aJmel Jovel PA-C blood pressure monitor test blood pressure one per day lisinopril-hydrochlorothiazide 20-12.5 mg 1 tab PO DAILY 90 days terbinafine HCl 250 mg PO DAILY 12 weeks Tobacco use date assessed: 08/20/25 Fall risk assessment: No Falls in past year Last assessed Fall Risk: 08/20/25 Dental Screening Dental Screen Date: 12/18/24 HPI annual exam HPI Details Patient is a 70-year-old male here today for annual physical. Patient has a past medical history of hypertension. .. Hypertension: Patient's blood pressure acceptable today in office. He reports most of his blood pressure elevations were due to stress.. We have transitioned him to lisinopril/hydrochlorothiazide dual blood pressure agent which has significantly reduced his blood pressure. He has reduced his caffeine intake as well. He will ultimately feels well without any chest discomfort, dizziness or headaches .. 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 Unfortunately did not get liver enzymes checked. He promises to get liver enzymes checked again and will like to restart antifungal. We did explain to him that the antifungal treatment is only a temporary treatment ,not long-term. Vaccines: Declines COVId and FLu , considering Shingrex vac, Considering PCV-20 Colon cancer screening: has cologaurd though sample counld not be processed [facility] Surgical History History of hand surgery Family History Mother HTN (hypertension) Social History Housing: Apartment Alcohol intake: never Patient Tobacco Use Status: Never used Tobacco e-Cigarette/Vaping Use: Never Used Second Hand Smoke Exposure: No service: No Current occupational status: employed Cognitive needs: No Hearing needs: No Vision needs: No Questionnaire Thrive Questionnaire Date Thrive assessed: 12/18/24 I am a: Patient What is your living situation today?: I have a steady place to live Within the past 12 months, did the food you bought not last and you didn't have the money to get more?: Never true Within the past 12 months, did you worry whether your food would run out before you got money to buy more?: Never true Do you have trouble paying for medicines?: No Do you have trouble getting transportation to medical appointments?: No Do you have trouble paying your heating and electricity bill?: No Do you have trouble taking care of your child, family member or friend?: No Do you have trouble with day-to-day activities such as bathing, preparing meals, shopping, managing finances, etc.?: No Are you currently unemployed and looking for a job?: No Are you interested in more education?: Yes Please select the resources that you would like help with: None Currently or been in a relationship where the following occur: I choose not to answer THRIVE Score: 0 AUDIT C Alcohol Use Questionnaire (AUDIT-C) 3. How often do you have six or more drinks on one occasion?: Never Total Score: 0 RENITA-7 AMB Questionnaire RENITA-7 Date RENITA - 7 assessed: 12/18/24 Source: Developed by Drs. Martín Molina, Destiny Flores, Gavin Lawrence and colleagues, with an educational tasneem from [employer]. Review of Systems Const Denies body aches, Denies chills, Denies excessive sweating, Denies fatigue, Denies fever(s) and Denies headache(s) Eyes Denies blurry vision ENT Denies dysphagia, Denies vertigo, Denies dizziness, Denies headache(s), Denies hearing loss and Denies tinnitus Card Denies chest pain, Denies chest pain with activity, Denies syncope, Denies irregular heart rhythm and Denies dyspnea Resp Denies chest congestion, Denies cough, Denies hemoptysis, Denies dyspnea and Denies wheezing GI Denies abdominal pain, Denies melena, Denies hematochezia, Denies coffee ground emesis, Denies dysphagia, Denies diarrhea, Denies nausea and Denies vomiting Denies difficulty urinating, Denies dysuria, Denies urinary frequency, Denies urinary hesitancy and Denies urinary urgency Musc Denies arthralgias, Denies limited range of motion, Denies muscle cramps and Denies muscle weakness Skin/Breast Denies rash and Denies skin ulcer Neuro Denies Abnormal speech present, Denies confusion, Denies vertigo, Denies dizziness, Denies syncope, Denies headache(s), Denies memory loss and Denies seizure-like activity Psych Denies anxiety, Denies confusion, Denies depression, Denies memory loss, Denies panic attacks and Denies paranoia Endo Denies excessive sweating, Denies fatigue, Denies flushing, Denies polydipsia and Denies polyuria Aller/Immun Denies wheezing Physical exam (Primary Care) Vital Signs: Last Vital Signs Temp 97.3 F 08/20/25 08:51 Pulse 66 08/20/25 08:51 BP 120/74 08/20/25 08:51 Pulse Ox 98 08/20/25 08:51 Oxygen Delivery Method Room Air 08/20/25 08:51 BMI result Body Mass Index 21.7 Tobacco/Smoking Status: Tobacco use Status Tobacco use date assessed 08/20/25 08/20/25 08:55 Patient Tobacco Use Status Never used Tobacco 08/20/25 08:55 e-Cigarette/Vaping Use Never Used 08/20/25 08:55 Thrive Assessment: Date of Thrive Assessment Date Thrive assessed 12/18/24 08/20/25 08:55 Currently or been in a relationship where the following occur: I choose not to answer Const General: cooperative, comfortable, no acute distress, alert and awake; No confusion Orientation/consciousness: oriented to person, oriented to place, patient oriented x3 and No confusion HENMT Head: Yes normocephalic Ears: external ears normal and TM's normal bilaterally Face and sinus: No sinus tenderness Mouth: Normal oral and palatal mucosa present and tongue normal Teeth and gingiva: dentition normal and gingiva normal Throat: Yes posterior oropharynx normal, Yes tonsils normal and Yes uvula midline Eyes Conjunctivae: conjunctivae normal Sclerae: sclerae normal Pupils: Equal, round and reactive pupils present EOM: EOMs intact bilaterally Direct Ophthalmoscopy: No no photophobia Neck Neck: Yes no lymphadenopathy, No tender and Yes no JVD Thyroid: Thyroid normal Carotids: no bruits Chest Chest palpation & inspection: no tenderness Resp Effort & Inspection: normal respiratory effort, no audible wheezes, not labored and no stridor Auscultation: no crackles, no rales, no rhonchi and no wheezes Cardio Jugular venous distension: no JVD Rate: regular rate, not bradycardic and not tachycardic Rhythm: regular rhythm Bruits: no carotid bruits Peripheral pulses: Peripheral pulses 2+ throughout GI Inspection: Yes normal to inspection, No abdominal wall ecchymosis and No visible herniation Palpation (GI): Soft to palpation, nontender, no guarding, not rigid and No hepatosplenomegaly present Auscultation: normoactive bowel sounds General: Yes no CVA tenderness Back/Spine/Pelvis Back: no CVA tenderness and No back tenderness Cervical Spine: cervical ROM normal Thoracic/Lumbar Spine: thoracic and lumbar spine normal to inspection, straight leg raise negative bilaterally, No thoraco-lumbar ROM limited and No lumbar spinal tenderness Skin Lesions: no lesions Rashes: no rashes Wounds: no wounds Neuro General: oriented to person, oriented to place, patient oriented x3, CN's II-XI intact bilaterally and No confusion Cranial nerves: Yes Equal, round and reactive pupils present and Yes Normal accommodation reflex present Cognition (Neuro): normal cognition Speech: No Abnormal speech present Gait exam (Neuro): Normal gait present Motor exam (neuro): 5/5 motor strength present throughout Extrem Right upper extremity: full ROM; no cyanosis Left upper extremity: full ROM; no cyanosis Right lower extremity: no edema Left lower extremity: no edema Psych Appearance: grossly normal Mental Status: mental status grossly normal Affect: normal affect Attitude: cooperative Thought process: Normal thought process present Coding Level of Care Code Est Pt Prev Care >65y(17590) Diagnoses Annual physical exam Z00.00 Primary hypertension I10 Hypertension type: primary hypertension Onychomycosis of nail of digit of hand B35.1 Assessment & Plan Assessment & Plan (1) Annual physical exam: Code(s): Z00. - Encounter for general adult medical examination without abnormal findings Category: Medical Plan: As per HPI (2) HTN (hypertension): Code(s): I10 - Essential (primary) hypertension Category: Medical Qualifiers: Hypertension type: primary hypertension Qualified Code(s): I10 - Essential (primary) hypertension Plan: Patient's blood pressure acceptable today in office. Now currently on dual combo agent lisinopril hydrochlorothiazide. For now will continue his current dose of antihypertensive medication with goal blood pressure to be below 140/90. (3) Onychomycosis of nail of digit of hand: Code(s): B35.1 - Tinea unguium Category: Medical Plan: Patient interested in returning back to using antifungal tablets though unfortunately has not checked his liver enzymes. Advised him strongly on getting his labs done before restarting antifungal treatment due to risk of hepatotoxicity. Patient agrees and understands Orders: Orders Complete Blood Count no Diff Today I10 - Essential (primary) hypertension Comprehensive [place]. Panel Fast Today I10 - Essential (primary) hypertension Microalbumin, Random (w Creat) Today I10 - Essential (primary) hypertension Medications: Refilled blood pressure monitor test blood pressure one per day 1 ea 0RF I10 - Essential (primary) hypertension
[2025-08-20 08:51] VITALS: BP 120/74; PULSE 66; TEMP 36.3; O2SAT 98; BMI 21.7
== END 2025-08-20 09:21 | disposition home or self-care (01) ==
LOC: HO.HMCH 08:23
PROVIDERS: PCP Physician Assistant; Visit Provider Physician Assistant
DX: Z00.00 Encounter for general adult medical examination without abnormal findings (principal); I10 Essential (primary) hypertension; B35.1 Tinea unguium

== ENCOUNTER 2025-09-12 09:10 | Outpatient (REF) | payer MEDICARE, SELFPAY ==
--- OUTSIDE RECORDS SUMMARY | 2025-09-12 10:24 | XMS_ITS | Clinical Summary ---
Author Organization [employer] Address [address] [facility] [address] [place] [address] Care Team Providers Care Professor Of Surgery Name Role Phone Unavailable Primary Care Provider [...]
--- OUTSIDE RECORDS SUMMARY | 2025-09-12 10:24 | XMS_ITS | Encounter Summary ---
Author Organization [email or web address] Address [address] [facility] [address] [place] [address] Care Team Providers Care [place] Sheriff Name Role Phone Unavailable Primary Care Provider Unavailabl e Reason for Visit * Reason Onset Date Comments comp no insurance 07/23/2024 Encounter Details Date Type Department Care Team (Late st Contact Info) Description 07/23/2024 Telephone [facility] [address] [place], [place] [phone] Jarvis Hart BDS [address] [place], [place] [phone] comp no insurance Social History Tobacco Use [...] patient that he may go in to [facility] location at least 1 month prior to appt to apply for SFS andsee if he qualifies for reduced rate documented in this encounter Plan of Treatment Not on file documented as of this encounter Visit Diagnoses Not on filedocumented in this encounter
[2025-09-12 10:37] LABS: Hematocrit 38.4 % (42.0-52.0); Hemoglobin 12.7 g/dl (14.0-18.0); Mean Corpuscular HGB Conc 33.1 g/dl (31.0-36.0); Mean Corpuscular Hemoglobin 31.1 pg (27.0-33.0); Mean Corpuscular Volume 93.9 fL (80.0-98.0); NRBC Abs Auto 0.000 X10*3/uL (0.0-0.012); NRBC Pct Auto 0.0 /100WBC (0.0-0.2); Platelet Count 312 X10*3/uL (160-400); Red Blood Count 4.09 X10*6/uL (4.60-5.80); White Blood Count 9.3 X10*3/uL (4.8-10.8)
[2025-09-12 11:26] LABS: Alanine Aminotransferase 17 U/L (0-40); Albumin Level 4.6 g/dL (3.5-5.0); Alkaline Phosphatase 46 U/L (39-117); Anion Gap 10 (12-20); Aspartate Amino Transferase 20 U/L (5-37); Blood Urea Nitrogen 26 mg/dL (9-16); Calcium 9.3 mg/dL (8.4-10.2); Carbon Dioxide 27 mmol/L (22-29); Chloride 107 mmol/L (96-108); Estimated Glomerular Filt Rate 47; Potassium 3.9 mmol/L (3.3-5.1); Sodium 140 mmol/L (135-145); Total Protein 7.0 g/dL (6.5-8.0)
== END 2025-09-12 09:11 | disposition home or self-care (01) ==
LOC: HO.LAB 09:10
PROVIDERS: PCP Physician Assistant; Visit Provider Physician Assistant
DX: B35.1 Tinea unguium (principal); I10 Essential (primary) hypertension
CPT/HCPCS: 36415; 80053; 80076; 82248; 85027

== ENCOUNTER 2025-09-13 08:59 | Outpatient (REF) | payer MEDICARE, SELFPAY ==
--- OUTSIDE RECORDS SUMMARY | 2025-09-13 09:35 | XMS_ITS | Encounter Summary ---
Author Organization [employer] Address [address] [facility] [address] [place] [address] Care Team Providers Care Corporate Buyer Name Role Phone Unavailable Primary Care Provider Unavailabl e Reason for Visit * Reason Onset Date Comments comp no insurance 07/23/2024 Encounter Details Date Type Department Care Team (Late st Contact Info) Description 07/23/[address] [facility] [address] [place], [place] [phone] Jarvis Hart BDS [address] [place], [place] [phone] comp no insurance Social History Tobacco Use [...] patient that he may go in to [facility] location at least 1 month prior to appt to apply for SFS andsee if he qualifies for reduced rate documented in this encounter Plan of Treatment Not on file documented as of this encounter Visit Diagnoses Not on filedocumented in this encounter
--- OUTSIDE RECORDS SUMMARY | 2025-09-13 09:35 | XMS_ITS | Clinical Summary ---
Author Organization [employer] Address [address] [facility] [address] [place] [address] Care Team Providers Care Tape Rules Printing Machine Operator Name Role Phone Unavailable Primary Care [...]
[2025-09-13 10:17] LABS: Microalbum/Creatinine Ratio Ur 6.6 ug/mg cr (<30)
== END 2025-09-13 09:00 | disposition home or self-care (01) ==
LOC: HO.LAB 08:59
PROVIDERS: PCP Physician Assistant; Visit Provider Physician Assistant
DX: I10 Essential (primary) hypertension (principal)
CPT/HCPCS: 82043; 82570